=== PATIENT | male | born 1980 | race Two or more races ===

== ENCOUNTER 2021-04-06 20:23 | Emergency (ER) | payer SELFPAY ==
[~2021-04-06] VITALS: Ht 172.7 cm; Wt 81.6 kg
--- NOTE | 2021-04-06 20:48 | NUR ---
Patient BIB [facility] for ETOH. Per report patient was laying down on park bench intoxicated and vomiting. Patient upon arrival slurring speech. No trauma noted on patient. Afebrile. Denies CP/pressure. No GI/ distress.
--- NOTE | 2021-04-06 20:50 | NUR ---
Dr. Mc at bedside, MSE in progress.
[2021-04-06 21:10] LABS: HEMATOCRIT 36.9 % (36.7-47.1); MEAN CORPUSCULAR HEMOGLOBIN 30.8 uug (23.8-33.4); MEAN CORPUSCULAR VOLUME 89.9 fL (73.0-96.2); PLATELET COUNT (AUTO) 157 K/uL (152-348)
[2021-04-06 21:15] LABS: BILIRUBIN,DIRECT 0.2 mg/dL (0.0-0.2); BILIRUBIN,TOTAL 0.4 mg/dL (0.2-1.0); CREATININE 0.9 mg/dL (0.6-1.3); TOTAL PROTEIN, SERUM 7.9 g/dL (6.4-8.2)
[2021-04-06 21:26] LABS: POTASSIUM 2.8 mmol/L (3.5-5.1)
[2021-04-06 21:29] LABS: BAND % (MANUAL) 2 % (0-10); LYMPHOCYTES % (MANUAL) 37 % (20-40); MONOCYTES % (MANUAL) 21 % (2-10); NEUTROPHILS % (MANUAL) 40 % (42-75)
[2021-04-06] MEDS ORDERED: IV NORMAL SALINE 1000 ML BAG IV ONE (21:30)
[2021-04-06] MEDS ORDERED: POTASSIUM CHLORIDE 50 ML ONE ×2 (21:43→22:51)
[2021-04-06] MEDS ORDERED: POTASSIUM CHLORIDE 20 MEQ TAB.PRT.SR PO ONE (21:45)
[2021-04-06] MEDS: POTASSIUM CHLORIDE 50 ML IV SCH ×2 (21:50→23:00)
[2021-04-06] MEDS ORDERED: POTASSIUM CHLORIDE 20 MEQ TAB.PRT.SR ONE (22:51)
--- NOTE | 2021-04-06 23:01 | NUR ---
Patient is resting comfortably in bed with eyes closed. VSS.
--- NOTE | 2021-04-07 01:33 | NUR ---
ASSISTED PT TO USE URINAL, DENIES ANY PAIN/DISCOMFORT.
--- NOTE | 2021-04-07 03:56 | NUR ---
Pt is resting, eyes closed. Breathing even and unlabored.
--- NOTE | 2021-04-07 05:10 | NUR ---
Patient discharged to home in stable condition. A/O x3, clear speech, complete sentences. Denies any n/v/d. Written and verbal after care instructions given. Patient verbalizes understanding of instructions. Stressed follow up or return to ER for worsening s/s. Steady gait. Picked up by friend.
[2021-04-07 05:12] VITALS: BP 136/77
== END 2021-04-07 05:13 | disposition home or self-care (01) ==
LOC: ER 20:23
DX: F10.129 Alcohol abuse with intoxication, unspecified (principal); Y90.8 Blood alcohol level of 240 mg/100 ml or more; E87.6 Hypokalemia
CPT/HCPCS: 36415; 80048; 80076; 80320; 85007; 85025; 96365; 99284; J3480 ×2; 70030-TC; A4663; G0480